=== PATIENT | male | born 1940 | race Caucasian/White ===

== ENCOUNTER → 2018-06-12 | Outpatient (CLI) | payer OTHER ==
[~2018-06-12] MED LIST: AMOCLA600S PO; FENT25TP TOP; HYDACE7.5L PO; Hytrin1 MG PO; IBUP100S PO; LEVSOD50 PO; LEVSOD88 PO; LISI5 PO; Norco 5-325 Ta1 EACH PO; OMEP10ER PO; OMEP20ER PO; PILO5 PO
[2018-06-13 05:30] LABS: Stool Occult Bld Immuno 1 Negative (NEGATIVE); Stool Occult Bld Immuno 2 Negative (NEGATIVE)
== END | disposition home or self-care (01) ==
LOC: LAB SHORT 12:19 → LAB 12:19
PROVIDERS: Internal Medicine Gastroenterology
DX: Z12.11 Encounter for screening for malignant neoplasm of colon (principal)
CPT/HCPCS: 82274

== ENCOUNTER → 2023-10-24 | Outpatient (CLI) | payer OTHER | LOC: LAB EV 15:30 | DX: R82.90 Unspecified abnormal findings in urine (principal) | CPT/HCPCS: 87077; 87086; 87186 ==

== ENCOUNTER → 2025-02-18 | Outpatient (CLI) | payer OTHER | LOC: LAB SHORT 13:47 → LAB 13:47 | DX: N39.0 Urinary tract infection, site not specified (principal) | CPT/HCPCS: 87086 ==